=== PATIENT | female | born 2000 | race African-American/Black ===

== ENCOUNTER 2022-01-03 20:26 | Emergency (ER) | payer BC | END 2022-01-03 22:02 | disposition home or self-care (01) | LOC: CSHERS 20:26 | DX: S90.111A Contusion of right great toe without damage to nail, initial encounter (principal); G40.909 Epilepsy, unspecified, not intractable, without status epilepticus; Z79.899 Other long term (current) drug therapy; W20.8XXA Other cause of strike by thrown, projected or falling object, initial encounter ==

== ENCOUNTER 2022-04-04 19:26 | Emergency (ER) | payer OTHER, BC ==
[2022-04-04] MEDS ORDERED: Cyclobenzaprine 10 MG TAB ONE (20:06)
[2022-04-04] MEDS ORDERED: Ketorolac Tromethamine 30 MG/ML VIAL ONE (20:06)
== END 2022-04-04 20:35 | disposition home or self-care (01) ==
LOC: CSHERS 19:26
DX: R51.9 Headache, unspecified (principal); M54.2 Cervicalgia; G40.909 Epilepsy, unspecified, not intractable, without status epilepticus; V89.2XXA Person injured in unspecified motor-vehicle accident, traffic, initial encounter
CPT/HCPCS: 70450; 72125; 96372; J1885